=== PATIENT | female | born 1960 | race Caucasian/White ===

== ENCOUNTER 2017-09-20 09:58 | Outpatient (CLI) | payer OTHER | END 2017-09-20 09:59 | disposition home or self-care (01) | LOC: BICMAMMO 09:58 | PROVIDERS: ATTEND Obstetrics & Gynecology | DX: Z12.31 Encounter for screening mammogram for malignant neoplasm of breast (principal); R92.1 Mammographic calcification found on diagnostic imaging of breast; Z80.3 Family history of malignant neoplasm of breast | CPT/HCPCS: 77063; 77067 ==

== ENCOUNTER 2018-09-21 11:57 | Outpatient (CLI) | payer OTHER ==
--- NOTE | 2018-09-21 13:54 | MMO ---
Bilateral MAMMO Bilat Screen [facility]. CLINICAL HISTORY: Patient is 58 years old and is seen for screening. The patient has the following family history of breast cancer: paternal grandmother. The patient has no personal history of cancer. VIEWS: The views performed were: bilateral craniocaudal with tomosynthesis and bilateral mediolateral oblique with tomosynthesis. FILMS COMPARED: The present examination has been compared to prior imaging studies performed at 09/17/2016 and 09/20/2017. MAMMOGRAM FINDINGS: There are scattered fibroglandular densities. There are no suspicious masses, suspicious calcifications, or new areas of architectural distortion. IMPRESSION: THERE IS NO MAMMOGRAPHIC EVIDENCE OF MALIGNANCY. A ROUTINE FOLLOW-UP MAMMOGRAM IN 1 YEAR IS RECOMMENDED. THE RESULTS OF THIS EXAM WERE SENT TO THE PATIENT. ACR BI-RADS Category 1 - Negative MAMMOGRAPHY NOTE: 1. A negative mammogram report should not delay a biopsy if a dominant of clinically suspicious mass is present. 2. Approximately 10% to 15% of breast cancers are not detected by mammography. 3. Adenosis and dense breasts may obscure an underlying neoplasm. Reported by: RAE STINSON MD Electonically Signed: [id number]
== END 2018-09-21 11:58 | disposition home or self-care (01) ==
LOC: BICMAMMO 11:57
PROVIDERS: ATTEND Obstetrics & Gynecology
DX: Z12.31 Encounter for screening mammogram for malignant neoplasm of breast (principal); Z80.3 Family history of malignant neoplasm of breast
CPT/HCPCS: 77063; 77067

== ENCOUNTER 2019-09-24 15:49 | Outpatient (CLI) | payer OTHER ==
--- NOTE | 2019-09-24 16:25 | MMO ---
Bilateral MAMMO Bilat Screen [facility]. CLINICAL HISTORY: Patient is 59 years old and is seen for screening. The patient has the following family history of breast cancer: paternal grandmother. The patient has no personal history of cancer. VIEWS: The views performed were: bilateral craniocaudal with tomosynthesis and bilateral mediolateral oblique with tomosynthesis. FILMS COMPARED: The present examination has been compared to prior imaging studies performed at [facility] on 02/14/2015, 09/17/2016, 09/20/2017 and 09/21/2018. This study has been interpreted with the assistance of computer-aided detection. MAMMOGRAM FINDINGS: There are scattered fibroglandular densities. There are no suspicious masses, suspicious calcifications, or new areas of architectural distortion. IMPRESSION: THERE IS NO MAMMOGRAPHIC EVIDENCE OF MALIGNANCY. A ROUTINE FOLLOW-UP MAMMOGRAM IN 1 YEAR IS RECOMMENDED. THE RESULTS OF THIS EXAM WERE SENT TO THE PATIENT. ACR BI-RADS Category 1 - Negative MAMMOGRAPHY NOTE: 1. A negative mammogram report should not delay a biopsy if a dominant of clinically suspicious mass is present. 2. Approximately 10% to 15% of breast cancers are not detected by mammography. 3. Adenosis and dense breasts may obscure an underlying neoplasm. Reported by: STEPHANIE ESCALONA MD Electonically Signed: [id number]
== END 2019-09-24 15:50 | disposition home or self-care (01) ==
LOC: BICMAMMO 15:49
PROVIDERS: ATTEND Obstetrics & Gynecology
DX: Z12.31 Encounter for screening mammogram for malignant neoplasm of breast (principal); Z80.3 Family history of malignant neoplasm of breast
CPT/HCPCS: 77063; 77067

== ENCOUNTER 2023-01-29 13:19 | Inpatient (IN) | payer BC ==
[2023-01-29 13:55] LABS: #Neutrophils 9.5 thou/uL (1.40-6.50); %Basophils 0.2 % (0.0-1.0); %Eosinophils 0.1 % (0.0-10.0); %Lymphocytes 9.9 % (21.0-51.0); %Monocytes 8.4 % (0.0-10.0); %Neutrophils 81.1 % (42.0-75.0); Hematocrit 42.8 % (36.0-47.0); Hemoglobin 14.6 g/dL (12.0-16.0); Mean Corpuscular HGB CONC 34.1 g/dL (32.0-36.0); Mean Corpuscular Hemoglobin 30.2 pg (27.0-31.0); Mean Corpuscular Volume 88.4 fl (78.0-98.0); Mean Platelet Volume 10.1 fL (7.4-10.4); Platelet Count 204 10x3/uL (130-400); RBC Distribution Width 14.3 % (11.5-14.5); Red Blood Cell (RBC) Count 4.84 mill/uL (4.20-5.40); White Blood Cell (WBC) Count 11.8 10x3/uL (4.8-10.8)
[2023-01-29] MEDS ORDERED: Ondansetron PF 4 MG/2 ML Vial ONE (14:08)
[2023-01-29] MEDS ORDERED: Ketorolac Tromethamine 30 MG/ML VIAL ONE (14:08)
[2023-01-29 14:19] LABS: ALT (SGPT) 40 U/L (8-55); AST (SGOT) 139 U/L (5-34); Albumin 4.6 g/dL (3.5-5.0); Alkaline Phosphatase 47 U/L (40-110); Anion Gap 17 mmol/L (10-20); BUN (Urea Nitrogen) 18 mg/dL (9.8-20.1); Bilirubin, Total 1.8 mg/dL (0.2-1.2); Calc. Creatinine Clearance 0 mL/min (70-130); Calcium 10.1 mg/dL (7.8-10.44); Carbon Dioxide 24 mmol/L (22-29); Chloride 99 mmol/L (98-107); Estimated GFR 48; Globulin 3.6 g/dL (2.4-3.5); Glucose 135 mg/dL (70-105); Lipase 42 U/L (8-78); Potassium 4.3 mmol/L (3.5-5.1); Protein, Total 8.2 g/dL (6.0-8.3); Sodium 136 mmol/L (136-145)
[2023-01-29 15:02] LABS: Troponin I 30.878 ng/mL (< 0.028)
[2023-01-29] MEDS ORDERED: Aspirin Chewable 81 MG TAB ONE (15:31)
[2023-01-29 16:09] LABS: Bacteria/HPF None Seen HPF (None Seen); Bilirubin Negative (Negative); Blood, Urine Negative (Negative); CAUTI Indications for Culture Acute Hematuria; Clarity Clear (Clear); Glucose, Urine (Dipstick) Normal (Negative); Ketone, Urine Negative (Negative); Leukocyte 250 Leu/uL (Negative); Nitrite Negative (Negative); Protein, Urine (Dipstick) 20 mg/dL (Neg-Trace); RBC/HPF 0-3 HPF (0-3); Specific Gravity, Urine 1.024 (1.002-1.036); Squamous Epithelial 0-3 HPF (0-3); Urobilinogen Normal mg/dL (Less than 2)
[2023-01-29 16:12] LABS: Urine Culture Reflex Yes Yes
[2023-01-29] MEDS ORDERED: Nitroglycerin 0.4mg/Hour PATCH TD SCH (16:23)
[2023-01-29] MEDS ORDERED: Ondansetron PF 4 MG/2 ML Vial IVP PRN (16:24)
[2023-01-29] MEDS ORDERED: Metoprolol Tartrate 5 MG/5 ML VIAL IVP PRN (16:32)
[2023-01-29 16:45] LABS: SARS-CoV-2 NAA Rapid Test DETECTED (NotDetected)
[2023-01-29] MEDS ORDERED: Nitroglycerin 2% Ointment 1 INCH/1 GM Packet ONE (16:51)
[2023-01-29] MEDS ORDERED: Acetaminophen 500 MG TAB ONE (18:11)
[2023-01-29] MEDS: Morphine 2 MG/ML VIAL SLOW IVP PRN (20:20)
[2023-01-29] MEDS: Nitroglycerin 2% Ointment 1 INCH/1 GM Packet TOP SCH (20:21)
[2023-01-29] MEDS: Sodium Chloride 0.9% 1,000 ML IV SCH (20:21)
[2023-01-29 21:28] LABS: Troponin I 29.405 ng/mL (< 0.028)
[2023-01-30] MEDS: Morphine 2 MG/ML VIAL SLOW IVP PRN ×3 (03:27→19:18)
[2023-01-30] MEDS: Nitroglycerin 2% Ointment 1 INCH/1 GM Packet TOP SCH ×2 (06:01→14:58)
[2023-01-30 06:54] LABS: #Neutrophils 8.8 thou/uL (1.40-6.50); %Basophils 0.2 % (0.0-1.0); %Lymphocytes 13.5 % (21.0-51.0); %Monocytes 8.9 % (0.0-10.0); %Neutrophils 77.1 % (42.0-75.0); Hematocrit 36.4 % (36.0-47.0); Hemoglobin 12.5 g/dL (12.0-16.0); Mean Corpuscular HGB CONC 34.3 g/dL (32.0-36.0); Mean Corpuscular Hemoglobin 30.4 pg (27.0-31.0); Mean Corpuscular Volume 88.6 fl (78.0-98.0); Mean Platelet Volume 9.8 fL (7.4-10.4); Platelet Count 158 10x3/uL (130-400); RBC Distribution Width 14.2 % (11.5-14.5); Red Blood Cell (RBC) Count 4.11 mill/uL (4.20-5.40); White Blood Cell (WBC) Count 11.4 10x3/uL (4.8-10.8)
[2023-01-30 06:59] LABS: Hemoglobin A1c 5.7 % (4.0-6.0)
[2023-01-30 08:05] LABS: ALT (SGPT) 26 U/L (8-55); AST (SGOT) 68 U/L (5-34); Albumin 3.7 g/dL (3.5-5.0); Alkaline Phosphatase 43 U/L (40-110); Anion Gap 11 mmol/L (10-20); BUN (Urea Nitrogen) 10 mg/dL (9.8-20.1); Bilirubin, Total 1.2 mg/dL (0.2-1.2); Calc. Creatinine Clearance 85 mL/min (70-130); Calcium 8.5 mg/dL (7.8-10.44); Carbon Dioxide 24 mmol/L (22-29); Cardiac Risk 5.5 (Less than 4.5); Chloride 105 mmol/L (98-107); Cholesterol 192 mg/dl (< 200 Desired); Estimated GFR 84; Globulin 2.9 g/dL (2.4-3.5); Glucose 133 mg/dL (70-105); HDL Cholesterol 35 mg/dL (>60 Neg Risk); LDL Cholesterol, Calculated 119 mg/dL; Protein, Total 6.6 g/dL (6.0-8.3); Sodium 136 mmol/L (136-145); Triglycerides 189 mg/dL (Less than 150)
[2023-01-30] MEDS: Sodium Chloride 0.9% 1,000 ML IV SCH ×2 (08:57→22:12)
[2023-01-30] MEDS: Aspirin 325 mg Enteric Coated Tablet PO SCH (08:57)
[2023-01-30] MEDS ORDERED: Cephalexin 250 MG CAP PO SCH (10:00)
[2023-01-30] MEDS: Acetaminophen 325 MG TAB PO PRN ×2 (10:36→17:38)
[2023-01-30] MEDS ORDERED: CATH FS PRN (12:15)
[2023-01-30] MEDS: Cephalexin 250 MG CAP PO SCH (22:13)
[2023-01-31] MEDS: Morphine 2 MG/ML VIAL SLOW IVP PRN (01:23)
[2023-01-31] MEDS: Acetaminophen 325 MG TAB PO PRN ×3 (05:35→21:24)
[2023-01-31] MEDS: Aspirin 325 mg Enteric Coated Tablet PO SCH (05:35)
[2023-01-31] MEDS: Cephalexin 250 MG CAP PO SCH ×2 (05:35→21:23)
[2023-01-31] MEDS: Nitroglycerin 2% Ointment 1 INCH/1 GM Packet TOP SCH ×2 (05:36→21:31)
[2023-01-31] MEDS ORDERED: Midazolam HCl 2 mg/2 ml Vial ONE (06:21)
[2023-01-31] MEDS ORDERED: Heparin 10,000 UNITS/ 10 ML VIAL ONE (06:21)
[2023-01-31] MEDS ORDERED: Lidocaine 1% (PF) 30 ML VIAL ONE (06:21)
[2023-01-31] MEDS ORDERED: fentaNYL 50 mcg/mL 1 mL Vial ONE (06:21)
[2023-01-31] MEDS ORDERED: Nitroglycerin 50 MG/250 ML BOT 0 ML ONE (06:22)
[2023-01-31] MEDS ORDERED: Sodium Chloride 0.9% 200 ML IV PRN (08:27)
[2023-01-31] MEDS ORDERED: Acetaminophen/Codeine 30-300mg Tablet PO PRN (08:27)
[2023-01-31] MEDS ORDERED: Nitroglycerin 0.4 MG TAB (25 Tab Bottle) SL PRN (08:27)
[2023-01-31] MEDS ORDERED: Sodium Chloride 0.9% 500 ML IV SCH (08:30)
[2023-01-31] MEDS ORDERED: Iopamidol 370 76% 100 ML VIAL ONE (09:27)
[2023-01-31] MEDS ORDERED: Communication Order-Pharmacy FS SCH (16:21)
[2023-01-31] MEDS ORDERED: Atorvastatin Calcium 40 MG TAB PO SCH (21:00)
[2023-01-31] MEDS: Metoprolol Tartrate 25 MG TAB PO SCH (21:24)
[2023-02-01] MEDS: Acetaminophen 325 MG TAB PO PRN (03:42)
[2023-02-01] MEDS: Metoprolol Tartrate 25 MG TAB PO SCH (05:38)
[2023-02-01] MEDS ORDERED: Lidocaine 1% PF 5 ML VIAL ONE ×2 (06:28→08:26)
[2023-02-01] MEDS ORDERED: Rocuronium Bromide 10 MG/ML (10ML VIAL) ONE ×3 (06:28→11:27)
[2023-02-01] MEDS ORDERED: Norepinephrine 4 MG/4 ML VIAL ONE (06:28)
[2023-02-01] MEDS ORDERED: PHENYLEPHRINE-NS 100 MCG/ML 10 ML SYRINGE ONE ×2 (06:29→08:26)
[2023-02-01] MEDS ORDERED: PROPOFOL 20 ML ONE (06:30)
[2023-02-01] MEDS ORDERED: ePHEDrine Sulfate 50 MG/10 ML VIAL ONE (06:34)
[2023-02-01] MEDS ORDERED: Albumin 5% 500 ML ONE (06:57)
[2023-02-01] MEDS ORDERED: Heparin 10,000 UNITS/1 ML VIAL 30,000 UNITS in Sodium Chloride 0.9% 1,000 ML FS SCH (07:00)
[2023-02-01] MEDS ORDERED: Sodium Chloride 0.9% 100 ML ONE (08:06)
[2023-02-01] MEDS ORDERED: CEFAZOLIN 2 GM VIAL ONE (08:06)
[2023-02-01] MEDS ORDERED: Fentanyl 250 MCG/5 ML VIAL ONE (08:14)
[2023-02-01] MEDS ORDERED: Lidocaine 2% PF 100 mg/5 ml Syringe ONE (08:26)
[2023-02-01] MEDS ORDERED: Calcium Chloride 1 GM/10 ML Abboject SYRINGE ONE (08:26)
[2023-02-01] MEDS ORDERED: Potassium Chloride 60 MEQ/30 ML VIAL ONE (08:26)
[2023-02-01] MEDS ORDERED: Mannitol 12.5 GM/50 ML ONE (08:26)
[2023-02-01] MEDS ORDERED: Cardioplegic Soln 1,000 ML BAG ONE (08:26)
[2023-02-01] MEDS ORDERED: Aminocaproic Acid 5 GM/20 ML VIAL ONE (08:26)
[2023-02-01] MEDS ORDERED: Sodium Bicarb 50 MEQ/50 ML VIAL ONE (08:26)
[2023-02-01] MEDS ORDERED: Magnesium 5 GM/10 ML VIAL ONE (08:26)
[2023-02-01] MEDS ORDERED: Papaverine 60 MG/2 ML VIAL ONE (08:26)
[2023-02-01] MEDS ORDERED: Heparin 5,000 UNITS/ML VIAL ONE (08:26)
[2023-02-01] MEDS ORDERED: PROPOFOL 200 MG/20 ML VIAL ONE (08:26)
[2023-02-01] MEDS ORDERED: Heparin 30,000 units/30 ml VIAL ONE (08:26)
[2023-02-01] MEDS ORDERED: Vancomycin 1 GM VIAL ONE (08:26)
[2023-02-01] MEDS ORDERED: Protamine Sulfate 250 MG/25 ML VIAL ONE (08:26)
[2023-02-01] MEDS ORDERED: Thrombin 5000 UNITS/5 ML VIAL ONE (08:26)
[2023-02-01] MEDS ORDERED: Midazolam HCl 2 mg/2 ml Vial ONE ×2 (08:40→10:24)
[2023-02-01] MEDS ORDERED: Progesterone,Micronized 100 MG CAP PO SCH ×2 (09:00)
[2023-02-01] MEDS ORDERED: Estradiol 1 MG TAB PO SCH ×2 (09:00)
[2023-02-01] MEDS ORDERED: Pilocarpine 5 MG TAB PO SCH ×2 (09:00)
[2023-02-01] MEDS ORDERED: niCARdipine 25 MG in Sodium Chloride 0.9% 250 ML 250 ML IVPB PRN (12:10)
[2023-02-01] MEDS ORDERED: DOPamine 400 MG/D5W 250 ML 250 ML IVPB PRN (12:10)
[2023-02-01] MEDS ORDERED: Nitroglycerin 50 MG/250 ML BOT 250 ML IVPB PRN (12:10)
[2023-02-01] MEDS ORDERED: Guaifenesin DM 100-10/5 ML UDCUP PO PRN (12:10)
[2023-02-01] MEDS ORDERED: Ondansetron PF 4 MG/2 ML Vial IVP PRN (12:10)
[2023-02-01] MEDS ORDERED: hydrALAZINE 20 MG/ML VIAL SLOW IVP PRN (12:10)
[2023-02-01] MEDS ORDERED: Post-Op Insulin Drip Protocol IVPB ONE (12:10)
[2023-02-01] MEDS ORDERED: fentaNYL 50 mcg/mL 1 mL Vial SLOW IVP PRN (12:10)
[2023-02-01] MEDS ORDERED: Morphine 2 MG/ML VIAL SLOW IVP PRN (12:10)
[2023-02-01] MEDS ORDERED: Bisacodyl 10 MG SUPP PR PRN (12:10)
[2023-02-01] MEDS ORDERED: Hetastarch 6% 500 ML 500 ML IVPB PRN (12:10)
[2023-02-01] MEDS ORDERED: Promethazine HCl 25 MG/ML VIAL IM PRN (12:10)
[2023-02-01] MEDS ORDERED: Ipratropium/Albuterol 3 ML NEB NEB PRN (12:10)
[2023-02-01] MEDS ORDERED: Bisacodyl 5 MG TAB PO PRN (12:10)
[2023-02-01] MEDS ORDERED: Acetaminophen 325 MG TAB PO PRN (12:10)
[2023-02-01] MEDS ORDERED: Mag-Al 1200 mg/1200 mg/30 ML UDCUP PO PRN (12:10)
[2023-02-01] MEDS ORDERED: NOREPINEPHRINE 8 MG/250 ML-D5W 250 ML IVPB PRN (12:10)
[2023-02-01] MEDS ORDERED: Nitroglycerin 50 MG/250 ML BOT 250 ML ONE (12:27)
[2023-02-01 12:30] LABS: #Eosinphils 0.1 thou/uL (0.0-0.7); #Monocytes 0.3 thou/uL (0.11-0.59); #Neutrophils 4.1 thou/uL (1.40-6.50); %Basophils 0.4 % (0.0-1.0); %Eosinophils 1.1 % (0.0-10.0); %Lymphocytes 18.6 % (21.0-51.0); %Neutrophils 72.1 % (42.0-75.0); Hematocrit 27.5 % (36.0-47.0); Hemoglobin 9.1 g/dL (12.0-16.0); Mean Corpuscular HGB CONC 33.1 g/dL (32.0-36.0); Mean Corpuscular Volume 90.8 fl (78.0-98.0); Mean Platelet Volume 10.7 fL (7.4-10.4); Platelet Count 103 10x3/uL (130-400); RBC Distribution Width 14.3 % (11.5-14.5); Red Blood Cell (RBC) Count 3.03 mill/uL (4.20-5.40); White Blood Cell (WBC) Count 5.7 10x3/uL (4.8-10.8)
[2023-02-01] MEDS ORDERED: Dextrose 50% Abboject 50 ML SYRINGE SLOW IVP PRN (12:30)
[2023-02-01] MEDS ORDERED: Insulin Regular 300 UNITS/3 ML VIAL SC PRN (12:30)
[2023-02-01] MEDS ORDERED: HUMULIN R 100 UNITS in Sodium Chloride 0.9% 100 ML IVPB SCH (12:30)
[2023-02-01] MEDS ORDERED: Dextrose 5% in Water 1,000 ML IV PRN (12:30)
[2023-02-01] MEDS ORDERED: Glucagon 1 MG/ML KIT SC PRN (12:30)
[2023-02-01 12:31] LABS: Actual Bicarbonate (HCO3a) 19.5 mEq/L (22-28); Base Excess (BEa) -4.8 mEq/L (-2.0 to +3.0); Calcium, Ionized (arterial) 1.11 mmol/L (1.12-1.30); Carboxyhemoglobin (COHb) 0.2 gm% (0.0-3.0); Hematocrit-ABG 29 % (36.0-47.0); Hemoglobin (Hb) 9.8 g/dL (12.0-16.0); O2 Tension (PaO2), arterial 182.3 mmHg (> 80.0); Potassium - ABG Lab 3.54 mmol/L (3.70-5.30); pH, Arterial 7.389 (7.35-7.45)
[2023-02-01 12:32] LABS: Puncture Site Arterial Line
[2023-02-01] MEDS ORDERED: Acetaminophen 650 MG Suppository PR PRN (12:41)
[2023-02-01] MEDS: Lactated Ringer's 1,000 ML IV SCH (12:45)
[2023-02-01] MEDS: Ketorolac Tromethamine 30 MG/ML VIAL IVP SCH ×2 (12:46→17:51)
[2023-02-01 12:50] LABS: Anion Gap 10 mmol/L (10-20); BUN (Urea Nitrogen) 10 mg/dL (9.8-20.1); Calc. Creatinine Clearance 104 mL/min (70-130); Calcium 7.4 mg/dL (7.8-10.44); Carbon Dioxide 18 mmol/L (22-29); Chloride 113 mmol/L (98-107); Estimated GFR 101; Glucose 148 mg/dL (70-105); Potassium 3.5 mmol/L (3.5-5.1); Sodium 137 mmol/L (136-145)
[2023-02-01] MEDS: fentaNYL 50 mcg/mL 1 mL Vial SLOW IVP PRN ×3 (12:51→19:57)
[2023-02-01 13:18] LABS: INR-International Normal Ratio 1.3; PTT 30.7 sec (22.9-36.1); Prothrombin Time 16.2 sec (12.0-14.7)
[2023-02-01] MEDS: Potassium Chloride 20 MEQ/100 ML PREMIX BAG IVPB PRN (14:02)
[2023-02-01] MEDS: CEFAZOLIN 2 GM in Sodium Chloride 0.9% 100 ML IVPB SCH (15:07)
[2023-02-01 15:09] LABS: Actual Bicarbonate (HCO3a) 19.3 mEq/L (22-28); Base Excess (BEa) -1.8 mEq/L (-2.0 to +3.0); Calcium, Ionized (arterial) 1.05 mmol/L (1.12-1.30); Carboxyhemoglobin (COHb) 0.3 gm% (0.0-3.0); Hematocrit-ABG 30 % (36.0-47.0); Hemoglobin (Hb) 10.1 g/dL (12.0-16.0); O2 Tension (PaO2), arterial 161.2 mmHg (> 80.0); Potassium - ABG Lab 3.79 mmol/L (3.70-5.30)
[2023-02-01 15:13] LABS: CO2 Tension 22.6 mmHg (35.0-45.0)
[2023-02-01 15:14] LABS: Puncture Site Arterial Line
[2023-02-01] MEDS: HYDROcodone/Acetaminophen 5/325 mg Tablet PO PRN ×2 (17:17→21:38)
[2023-02-01 18:52] LABS: Hematocrit 24.2 % (36.0-47.0); Hemoglobin 7.9 g/dL (12.0-16.0)
[2023-02-01 19:07] LABS: Potassium 3.7 mmol/L (3.5-5.1)
[2023-02-01] MEDS: Famotidine/PF 20 mg/2ml Vial SLOW IVP SCH (19:58)
[2023-02-01] MEDS: Atorvastatin Calcium 20 MG TAB PO SCH (19:58)
[2023-02-02] MEDS: Ketorolac Tromethamine 30 MG/ML VIAL IVP SCH ×4 (00:03→17:21)
[2023-02-02] MEDS: CEFAZOLIN 2 GM in Sodium Chloride 0.9% 100 ML IVPB SCH ×2 (00:04→08:33)
[2023-02-02] MEDS: Lactated Ringer's 1,000 ML IV SCH (00:47)
[2023-02-02] MEDS: fentaNYL 50 mcg/mL 1 mL Vial SLOW IVP PRN (04:05)
[2023-02-02 04:25] LABS: #Eosinphils 0.1 thou/uL (0.0-0.7); #Monocytes 0.5 thou/uL (0.11-0.59); %Basophils 0.4 % (0.0-1.0); %Eosinophils 1.7 % (0.0-10.0); %Lymphocytes 21.3 % (21.0-51.0); %Monocytes 11.5 % (0.0-10.0); %Neutrophils 64.9 % (42.0-75.0); Hematocrit 28.3 % (36.0-47.0); Hemoglobin 9.4 g/dL (12.0-16.0); Mean Corpuscular HGB CONC 33.2 g/dL (32.0-36.0); Mean Corpuscular Hemoglobin 30.2 pg (27.0-31.0); Mean Platelet Volume 10.6 fL (7.4-10.4); RBC Distribution Width 14.6 % (11.5-14.5); Red Blood Cell (RBC) Count 3.11 mill/uL (4.20-5.40); White Blood Cell (WBC) Count 4.7 10x3/uL (4.8-10.8)
[2023-02-02 04:51] LABS: Platelet Count 111 10x3/uL (130-400)
[2023-02-02] MEDS: HYDROcodone/Acetaminophen 5/325 mg Tablet PO PRN ×4 (05:08→20:32)
[2023-02-02 05:18] VITALS: BMI 24.1
[2023-02-02 05:39] LABS: Anion Gap 11 mmol/L (10-20); BUN (Urea Nitrogen) 9 mg/dL (9.8-20.1); Calc. Creatinine Clearance 97 mL/min (70-130); Calcium 7.6 mg/dL (7.8-10.44); Carbon Dioxide 21 mmol/L (22-29); Chloride 111 mmol/L (98-107); Estimated GFR 99; Glucose 101 mg/dL (70-105); Potassium 3.5 mmol/L (3.5-5.1); Sodium 139 mmol/L (136-145)
[2023-02-02] MEDS: Potassium Chloride 20 MEQ/100 ML PREMIX BAG IVPB PRN (06:05)
[2023-02-02] MEDS: Famotidine/PF 20 mg/2ml Vial SLOW IVP SCH (08:32)
[2023-02-02] MEDS: Magnesium 2 GM/50 ML(in water) 2 GM in Premix 1 BAG IVPB SCH (08:33)
[2023-02-02] MEDS: Polyethylene Glycol 3350 17 GM Packet PO SCH (08:33)
[2023-02-02] MEDS ORDERED: Aspirin 325 MG TAB PO SCH (09:00)
[2023-02-02] MEDS ORDERED: Nitroglycerin 0.4 MG TAB (25 Tab Bottle) SL PRN (11:26)
[2023-02-02] MEDS ORDERED: Artificial Tear Sol 15 ML BOT EA EYE PRN (11:26)
[2023-02-02] MEDS ORDERED: Dextrose 50% Abboject 50 ML SYRINGE SLOW IVP PRN (11:45)
[2023-02-02] MEDS ORDERED: Insulin Regular 300 UNITS/3 ML VIAL SC PRN (11:45)
[2023-02-02] MEDS ORDERED: Dextrose 5% in Water 1,000 ML IV PRN (11:45)
[2023-02-02] MEDS ORDERED: Glucagon 1 MG/ML KIT SC PRN (11:45)
[2023-02-02] MEDS ORDERED: Estradiol 1 MG TAB PO SCH (17:00)
[2023-02-02] MEDS: Atorvastatin Calcium 20 MG TAB PO SCH (20:31)
[2023-02-02] MEDS: Famotidine 20 MG TAB PO SCH (20:31)
[2023-02-02] MEDS: Pilocarpine 5 MG TAB PO SCH (22:11)
[2023-02-03] MEDS: Ketorolac Tromethamine 30 MG/ML VIAL IVP SCH ×4 (00:37→18:43)
[2023-02-03 05:11] LABS: #Eosinphils 0.2 thou/uL (0.0-0.7); #Monocytes 0.9 thou/uL (0.11-0.59); #Neutrophils 5.9 thou/uL (1.40-6.50); %Basophils 0.3 % (0.0-1.0); %Eosinophils 1.9 % (0.0-10.0); %Lymphocytes 18.7 % (21.0-51.0); %Monocytes 10.2 % (0.0-10.0); %Neutrophils 68.3 % (42.0-75.0); Hematocrit 29.5 % (36.0-47.0); Hemoglobin 9.7 g/dL (12.0-16.0); Mean Corpuscular HGB CONC 32.9 g/dL (32.0-36.0); Mean Corpuscular Hemoglobin 30.4 pg (27.0-31.0); Mean Corpuscular Volume 92.5 fl (78.0-98.0); Mean Platelet Volume 10.8 fL (7.4-10.4); Platelet Count 162 10x3/uL (130-400); RBC Distribution Width 14.8 % (11.5-14.5); Red Blood Cell (RBC) Count 3.19 mill/uL (4.20-5.40); White Blood Cell (WBC) Count 8.6 10x3/uL (4.8-10.8)
[2023-02-03] MEDS: HYDROcodone/Acetaminophen 5/325 mg Tablet PO PRN ×2 (06:13→10:20)
[2023-02-03] MEDS ORDERED: Potassium Chloride 20 MEQ TAB PO SCH (06:45)
[2023-02-03] MEDS: Progesterone,Micronized 100 MG CAP PO SCH (09:07)
[2023-02-03] MEDS: Polyethylene Glycol 3350 17 GM Packet PO SCH (09:07)
[2023-02-03] MEDS: Potassium Chloride 10 MEQ TAB PO SCH (09:08)
[2023-02-03] MEDS: Famotidine 20 MG TAB PO SCH ×2 (09:08→20:50)
[2023-02-03] MEDS: Estradiol 1 MG TAB PO SCH (09:08)
[2023-02-03] MEDS: Pilocarpine 5 MG TAB PO SCH ×3 (09:08→20:57)
[2023-02-03] MEDS: Aspirin 325 mg Enteric Coated Tablet PO SCH (09:08)
[2023-02-03] MEDS: Furosemide 40 MG TAB PO SCH (09:08)
[2023-02-03] MEDS: Magnesium 2 GM/50 ML(in water) 2 GM in Premix 1 BAG IVPB SCH (09:09)
[2023-02-03] MEDS: Atorvastatin Calcium 20 MG TAB PO SCH (20:56)
[2023-02-04] MEDS: Ketorolac Tromethamine 30 MG/ML VIAL IVP SCH ×2 (00:13→05:54)
[2023-02-04] MEDS: HYDROcodone/Acetaminophen 5/325 mg Tablet PO PRN (03:06)
[2023-02-04] MEDS ORDERED: Carvedilol 3.125 MG TAB PO SCH (08:00)
[2023-02-04 08:03] VITALS: BP 134/83; TEMP 97.2
[2023-02-04] MEDS ORDERED: Senokot S 8.6-50 MG TAB PO PRN (08:33)
[2023-02-04] MEDS: Pilocarpine 5 MG TAB PO SCH (09:56)
[2023-02-04] MEDS: Potassium Chloride 10 MEQ TAB PO SCH (09:56)
[2023-02-04] MEDS: Furosemide 40 MG TAB PO SCH (09:56)
[2023-02-04] MEDS: Aspirin 325 mg Enteric Coated Tablet PO SCH (09:56)
[2023-02-04] MEDS: Progesterone,Micronized 100 MG CAP PO SCH (09:56)
[2023-02-04] MEDS: Estradiol 1 MG TAB PO SCH (09:56)
[2023-02-04] MEDS: Famotidine 20 MG TAB PO SCH (09:56)
[2023-02-04] MEDS: Polyethylene Glycol 3350 17 GM Packet PO SCH (09:56)
== END 2023-02-04 13:20 | disposition home or self-care (01) | DRG 233 ==
LOC: ERS 13:19 → 2NO 15:54 → CCU 02-01 09:58 → 2NO 02-02 18:40
PROVIDERS: ADMIT Internal Medicine; ATTEND Internal Medicine
PROC: 8E0ZXY6 Isolation (ICD-10-PCS; principal; 2023-01-29)
PROC: 4A023N7 Measurement of Cardiac Sampling and Pressure, Left Heart, Percutaneous Approach (ICD-10-PCS; 2023-01-31)
PROC: B2111ZZ Fluoroscopy of Multiple Coronary Arteries using Low Osmolar Contrast (ICD-10-PCS; 2023-01-31)
PROC: B2151ZZ Fluoroscopy of Left Heart using Low Osmolar Contrast (ICD-10-PCS; 2023-01-31)
PROC: 02100Z9 Bypass Coronary Artery, One Artery from Left Internal Mammary, Open Approach (ICD-10-PCS; 2023-02-01)
PROC: 021209W Bypass Coronary Artery, Three Arteries from Aorta with Autologous Venous Tissue, Open Approach (ICD-10-PCS; 2023-02-01)
PROC: 06BQ4ZZ Excision of Left Saphenous Vein, Percutaneous Endoscopic Approach (ICD-10-PCS; 2023-02-01)
PROC: 5A1221Z Performance of Cardiac Output, Continuous (ICD-10-PCS; 2023-02-01)
PROC: 02L70CK Occlusion of Left Atrial Appendage with Extraluminal Device, Open Approach (ICD-10-PCS; 2023-02-01)
PROC: 30233N1 Transfusion of Nonautologous Red Blood Cells into Peripheral Vein, Percutaneous Approach (ICD-10-PCS; 2023-02-01)
PROC: 4A133R1 Monitoring of Arterial Saturation, Peripheral, Percutaneous Approach (ICD-10-PCS; 2023-02-01)
PROC: 30233J1 Transfusion of Nonautologous Serum Albumin into Peripheral Vein, Percutaneous Approach (ICD-10-PCS; 2023-02-01)
PROC: 3E033XZ Introduction of Vasopressor into Peripheral Vein, Percutaneous Approach (ICD-10-PCS; 2023-02-01)
DX: I21.4 Non-ST elevation (NSTEMI) myocardial infarction (principal); U07.1 COVID-19; N17.9 Acute kidney failure, unspecified; D62 Acute posthemorrhagic anemia; M35.00 Sjogren syndrome, unspecified; I25.10 Atherosclerotic heart disease of native coronary artery without angina pectoris; E78.5 Hyperlipidemia, unspecified; I10 Essential (primary) hypertension; Z82.49 Family history of ischemic heart disease and other diseases of the circulatory system; Z79.899 Other long term (current) drug therapy
CPT/HCPCS: 36415; 36416; 36430; 71045; 80048; 80053; 80061; 81001; 82805; 82947; 83036; 83690; 84484; 85025; 85610; 85730; 86850; 86900; 86901; 87086; 93005; 93010; 93306; 93458; 93798; 94002; 96372; 96374; 97139; 99152; A4311; C1751; C1760; C1769; J1642; J1644; J1650; J1815; J1885; J2001; J2150; J2250; J2272; J2405; J2440; J2704; J2720; J3010; J3370; J3475; J3480; J3490; J7050; J7120; P9016; P9045; Q9967; S0017; S0028

== ENCOUNTER 2023-08-03 19:30 | Inpatient (IN) | payer BC ==
[~2023-08-03 19:30] MED LIST: Iopamidol-370 76% 500 ML MDV (1 ML CHARGE) ONE
[2023-08-03 20:20] LABS: #Basophils 0.04 10x3/uL (0.0-0.2); %Basophils 0.5 % (0.0-1.0); %Eosinophils 2.6 % (0.0-10.0); %Lymphocytes 41.8 % (21.0-51.0); %Monocytes 7.5 % (0.0-10.0); %Neutrophils 47.2 % (42.0-75.0); Hematocrit 39.7 % (36.0-47.0); Hemoglobin 13.5 g/dL (12.0-16.0); Mean Corpuscular Hemoglobin 28.8 pg (27.0-31.0); Mean Corpuscular Volume 84.8 fL (78.0-98.0); Mean Platelet Volume 10.5 fL (7.4-10.4); Platelet Count 185 10x3/uL (130-400); RBC Distribution Width 14.3 % (11.5-14.5); Red Blood Cell (RBC) Count 4.68 mill/uL (4.20-5.40)
[2023-08-03 20:42] LABS: Troponin I 0.015 ng/mL (< 0.028)
[2023-08-03 20:44] LABS: Lipase 722 U/L (8-78)
[2023-08-03 20:47] LABS: ALT (SGPT) 22 U/L (8-55); AST (SGOT) 19 U/L (5-34); Albumin 4.1 g/dL (3.4-4.8); Alkaline Phosphatase 46 U/L (40-110); Anion Gap 19 mmol/L (10-20); BUN (Urea Nitrogen) 21 mg/dL (9.8-20.1); Bilirubin, Total 0.6 mg/dL (0.2-1.2); Calc. Creatinine Clearance 0 mL/min (70-130); Calcium 9.8 mg/dL (7.8-10.44); Carbon Dioxide 19 mmol/L (23-31); Chloride 106 mmol/L (98-107); Estimated GFR 47; Globulin 3.6 g/dL (2.4-3.5); Glucose 127 mg/dL (80-115); Potassium 3.4 mmol/L (3.5-5.1); Protein, Total 7.7 g/dL (5.8-8.1); Sodium 141 mmol/L (136-145)
[2023-08-03] MEDS ORDERED: Acetaminophen 325 MG TAB PO PRN (23:26)
[2023-08-03] MEDS ORDERED: Ondansetron PF 4 MG/2 ML Vial IVP PRN (23:26)
[2023-08-03] MEDS ORDERED: Morphine 4 MG/ML VIAL SLOW IVP PRN (23:35)
[2023-08-04] MEDS: Lactated Ringer's 1,000 ML IV SCH (00:33)
[2023-08-04] MEDS: Potassium Chloride 20 MEQ in Premix 1 BAG IVPB SCH (00:34)
[2023-08-04 00:35] LABS: Magnesium 1.8 mg/dL (1.6-2.6)
[2023-08-04 00:40] LABS: Troponin I 0.012 ng/mL (< 0.028)
[2023-08-04] MEDS: HYDROcodone/Acetaminophen 10/325 mg Tablet PO PRN (02:03)
[2023-08-04 04:03] LABS: Anion Gap 12 mmol/L (10-20); BUN (Urea Nitrogen) 17 mg/dL (9.8-20.1); Calc. Creatinine Clearance 0 mL/min (70-130); Calcium 8.9 mg/dL (7.8-10.44); Carbon Dioxide 20 mmol/L (23-31); Chloride 114 mmol/L (98-107); Estimated GFR 83; Glucose 104 mg/dL (80-115); Lipase 293 U/L (8-78); Sodium 142 mmol/L (136-145)
[2023-08-04 04:24] LABS: #Basophils 0.03 10x3/uL (0.0-0.2); %Basophils 0.6 % (0.0-1.0); %Eosinophils 3.2 % (0.0-10.0); %Lymphocytes 40.8 % (21.0-51.0); %Monocytes 9.9 % (0.0-10.0); %Neutrophils 45.3 % (42.0-75.0); Hematocrit 37.9 % (36.0-47.0); Hemoglobin 12.8 g/dL (12.0-16.0); Mean Corpuscular HGB CONC 33.8 g/dL (32.0-36.0); Mean Corpuscular Hemoglobin 28.3 pg (27.0-31.0); Mean Corpuscular Volume 83.8 fL (78.0-98.0); Mean Platelet Volume 10.8 fL (7.4-10.4); Platelet Count 148 10x3/uL (130-400); RBC Distribution Width 14.3 % (11.5-14.5); Red Blood Cell (RBC) Count 4.52 mill/uL (4.20-5.40)
[2023-08-04 04:30] LABS: Troponin I 0.015 ng/mL (< 0.028)
[2023-08-04 07:34] VITALS: BP 159/87; TEMP 98.3
[2023-08-04] MEDS: Famotidine/PF 20 mg/2ml Vial SLOW IVP SCH (08:41)
== END 2023-08-04 12:02 | disposition home or self-care (01) | DRG 640 ==
LOC: ERS 19:30 → 2NO 23:42
PROVIDERS: ADMIT Internal Medicine; ATTEND Family Medicine
DX: E86.0 Dehydration (principal); K85.20 Alcohol induced acute pancreatitis without necrosis or infection; N17.9 Acute kidney failure, unspecified; Z79.899 Other long term (current) drug therapy; I95.89 Other hypotension; E87.6 Hypokalemia; Z79.82 Long term (current) use of aspirin; Z95.1 Presence of aortocoronary bypass graft; M19.90 Unspecified osteoarthritis, unspecified site; I25.10 Atherosclerotic heart disease of native coronary artery without angina pectoris
CPT/HCPCS: 36415; 74177; 80048; 80053; 83690; 83735; 84484; 85025; 93005; 96360; 96361; J3480; J7120; Q9967; S0028